=== PATIENT | female | born 1975 | race Caucasian/White ===

== ENCOUNTER → 2017-04-26 | Outpatient (CLI) | payer OTHER ==
--- NOTE | 2017-04-26 11:56 | REPMRS ---
Patient History The patient states she had a clinical breast exam in April 2017.Patient is nulliparous. Family history of breast cancer in maternal aunt at age 70 and colorectal cancer in maternal grandmother. Taking hormonal contraceptives for 1 month. Digital Mammo Screening Bilat: April 26, 2017 - Exam #: [id number] Bilateral CC and MLO view(s) were taken. Technologist: Linda Rangel, Technologist Prior study comparison: April 24, 2016, bilateral digital mammo screening bilat performed at [facility]. February 14, 2013, bilateral digital mammo screening bilat performed at [facility]. FINDINGS: There are scattered fibroglandular densities. There has been no change in the appearance of the mammogram from the prior studies. There is a mild amount of residual fibroglandular tissue which is fairly symmetric. There is no interval development of dominant mass, architectural distortion, or clustered microcalcification suggestive of malignancy. ASSESSMENT: BI-RADS/ACR category 1 mammogram. Negative. Recommendation Routine screening mammogram in 1 year (for women over age 40). This mammogram was interpreted with the aid of an FDA-approved computer-aided dectection system. Electronically Signed By: Joel Dick MD 04/26/17 1454
== END ==
LOC: M RAD 11:20
PROVIDERS: ATTEND Obstetrics & Gynecology
DX: Z12.31 Encounter for screening mammogram for malignant neoplasm of breast (principal)

== ENCOUNTER 2017-06-25 07:05 | Day surgery (SDC) | payer OTHER ==
[~2017-06-25] VITALS: Ht 157.5 cm; Wt 99.3 kg
[~2017-06-25 07:05] MED LIST: VALT500T PO
[2017-06-25] MEDS ORDERED: LR 1,000 ML IV ONE (07:15)
[2017-06-25] MEDS ORDERED: LIDOCAINE 1% MDV 20ML VIAL SQ PRN (07:15)
[2017-06-25 07:45] LABS: MEAN CORPUSCULAR HEMOGLOBIN 29.2 pg (27.0-33.0); MEAN CORPUSCULAR HGB CONC 32.4 g/dl (32.0-36.5); MEAN CORPUSCULAR VOLUME 90.1 fl (80.0-96.0); PLATELET COUNT, AUTOMATED 333 10^3/uL (150-450); RED CELL DISTRIBUTION WIDTH 13.1 % (11.5-14.5); WHITE BLOOD COUNT 7.2 10^3/uL (4.0-10.0)
[2017-06-25 07:46] LABS: CONTROL LINE HCG INT CTR LINE PRESENT
[2017-06-25] MEDS ORDERED: ACETAMINOPHEN 650 MG SUPP As Ordered ONE (08:15)
[2017-06-25] MEDS ORDERED: MIDAZOLAM INJ 2 MG/2 ML VIAL (J2250) As Ordered ONE (08:26)
[2017-06-25] MEDS ORDERED: fentaNYL 100 MCG/2 ML INJECTION (J3010) As Ordered ONE (08:26)
[2017-06-25] MEDS ORDERED: LIDOCAINE 2% INJ 100 MG/5 ML SDV (FOR ANES.) As Ordered ONE (08:37)
[2017-06-25] MEDS ORDERED: PROPOFOL 200 MG/20 ML VIAL As Ordered ONE ×2 (08:37→08:42)
[2017-06-25] MEDS ORDERED: dexameTHASONE 4 MG/ML 1ML VIAL (J1100) As Ordered ONE (08:43)
[2017-06-25] MEDS ORDERED: KETOROLAC 60 MG/2 ML VIAL (J1885) As Ordered ONE (08:43)
[2017-06-25] MEDS ORDERED: ONDANSETRON 4MG/2ML VIAL (J2405) As Ordered ONE (08:43)
[2017-06-25] MEDS ORDERED: PERC5TAB12 PO (09:00)
[2017-06-25 10:00] VITALS: BP 134/84
--- NOTE | 2017-06-25 17:03 | RO ---
DATE OF PROCEDURE: 06/25/2017 Elvie is a 42-year-old female with an extensive history of abnormal uterine bleeding. After counseling in the office a decision was made for D and C hysteroscopy. The patient had an inconclusive endometrial biopsy done in the office at this point this is being done to rule out any further pathology. PREOPERATIVE DIAGNOSIS: Menometrorrhagia with an inconclusive endometrial biopsy cannot rule out cancer. POSTOPERATIVE DIAGNOSIS: 1. Menometrorrhagia with an inconclusive endometrial biopsy cannot rule out cancer. 2. Cervical thrush endometrial polyp and her fluffy endometrium. PROCEDURE: 1. D and C. 2. Hysteroscopy. 3. Polypectomy. ANESTHESIA: Light MAC COMPLICATIONS: None. ESTIMATED BLOOD LOSS: Less than 100 mL SPECIMENS SENT TO THE LAB: Endometrial curettings and endometrial polyp. PROCEDURE: After visiting with the patient in the holding area informed consent was reaffirmed. She was then taken to the operating room where anesthetic was found to be adequate. She was then draped and prepped usual sterile fashion in dorsal lithotomy position. At this point a straight catheter bladder was performed for approximately 200 mL of clear urine. We then placed a weighted speculum in the posterior fornix of the vagina using a Allison retractor, the anterior lip of the cervix was then grasped with a single-tooth tenaculum. The uterus was sound to approximately 8-9 cm in size. The cervix was then serially dilated. The hysteroscope was inserted upon visualizing the endometrial cavity and an endocervical fascia endometrial polyp was noted with very fluffy endometrium at this point the hysteroscope was removed. Using a polyp forceps the polyp was removed. A sharp curettage of the endometrial lining was done numerous fluffy endometrial tissue was obtained and those were sent to pathology for final diagnosis. Endometrium versus an adenocarcinoma cannot be ruled out. Awaiting final pathology. The patient did tolerated procedure well. She was then transferred to recovery room in stable condition.
== END 2017-06-25 10:20 | disposition home or self-care (01) ==
LOC: M SDC 07:05
PROVIDERS: ATTEND Obstetrics & Gynecology
DX: C54.1 Malignant neoplasm of endometrium (principal); N84.0 Polyp of corpus uteri; A60.9 Anogenital herpesviral infection, unspecified; Z79.899 Other long term (current) drug therapy
CPT/HCPCS: 36415; 58558; 84703; 85027; 86850; 86900; 86901; 88305; J1100; J1885; J2250; J2405; J3010

== ENCOUNTER → 2017-08-19 | Outpatient (CLI) | payer OTHER ==
[2017-08-19 09:12] LABS: BASO % 0.6 % (0.0-1.0); EOS # 0.1 10^3/uL (0.0-0.50); EOS % 1.5 % (0.0-3.0); HEMATOCRIT 38.8 % (36.0-47.0); HEMOGLOBIN 13.1 g/dl (12.0-16.0); IMMATURE GRANULOCYTE % 0.3 % (0-0); LYMPH # 1.6 10^3/uL (1.5-4.5); LYMPH % 24.6 % (24.0-44.0); MEAN CORPUSCULAR HEMOGLOBIN 30.5 pg (27.0-33.0); MEAN CORPUSCULAR HGB CONC 33.8 g/dl (32.0-36.5); MEAN CORPUSCULAR VOLUME 90.2 fl (80.0-96.0); MONO # 0.6 10^3/uL (0.0-0.8); MONO % 9.6 % (0.0-5.0); NEUTROPHILS # 4.2 10^3/uL (1.8-7.7); NEUTROPHILS % 63.4 % (36.0-66.0); PLATELET COUNT, AUTOMATED 287 10^3/uL (150-450); RED CELL DISTRIBUTION WIDTH 12.9 % (11.5-14.5); WHITE BLOOD COUNT 6.6 10^3/uL (4.0-10.0)
== END ==
LOC: M WUC 08:12
DX: C54.1 Malignant neoplasm of endometrium (principal)

== ENCOUNTER → 2018-04-28 | Outpatient (CLI) | payer OTHER | LOC: M RAD 12:25 | DX: Z12.31 Encounter for screening mammogram for malignant neoplasm of breast (principal) ==

== ENCOUNTER → 2019-05-11 | Outpatient (CLI) | payer OTHER ==
[~2019-05-11] MED LIST changes: +PERC5TAB12 PO
== END ==
LOC: M RAD 10:55
PROVIDERS: ATTEND Obstetrics & Gynecology
DX: Z12.31 Encounter for screening mammogram for malignant neoplasm of breast (principal)

== ENCOUNTER → 2019-05-30 | Outpatient (CLI) | payer OTHER ==
--- NOTE | 2019-05-30 15:57 | REP ---
BILATERAL MAMMOGRAM WITH 3D TOMOSYNTHESIS, LEFT BREAST ULTRASOUND: Family history of breast cancer at age 70 in maternal aunt. Kieran Garcia lifetime risk of breast cancer at 13.5%. Comparison mammogram 04/28/2018 as well as other prior exams. The patient complains of bilateral breast pain laterally more so on the left. However, she states that this may be due to increased physical exertion recently. There is mild scattered fibroglandular tissue bilaterally in a fairly symmetrical pattern. No mass, architectural distortion or clustered microcalcifications are seen bilaterally. Real-time sonographic evaluation of the outer half of the left breast is performed at the site of greatest breast pain. No solid mass is seen. There is a benign cyst at 3-o'clock position of the left breast approximately 7 cm from the nipple. There are minimally dilated left retroareolar ducts. IMPRESSION: ACR 2 benign. No mass or clustered microcalcifications bilaterally. By ultrasound in the outer half of the left breast in the region of greatest breast pain there is a benign appearing oval cyst 6 x 2 x 7 mm at the 3-o'clock position. No solid nodule is seen. The findings are benign. Recommend followup mammogram in one year. BIRADS 2: BI-RADS/ACR category 2 mammogram. Benign Findings. This mammogram was interpreted with the aid of an FDA-approved computer-aided detection system. The patient states she/he had a clinical breast exam in 05/2019. The patient letter being requested is M2. Electronically Signed by Joel Dick MD 05/31/2019 12:28 P
== END ==
LOC: M RAD 12:17
PROVIDERS: ATTEND Obstetrics & Gynecology
DX: N60.02 Solitary cyst of left breast (principal); N64.4 Mastodynia; Z80.3 Family history of malignant neoplasm of breast
CPT/HCPCS: 76642; 77066; G0279

== ENCOUNTER → 2020-05-17 | Outpatient (CLI) | payer OTHER ==
--- NOTE | 2020-05-17 14:42 | REPMRS ---
Patient History The patient states she had a clinical breast exam in April 2020.Family history of colorectal cancer in maternal grandmother, breast cancer at age 70 in maternal aunt. Taking hormonal contraceptives for 1 month. 3D TOMOSYNTHESIS WAS PERFORMED. The Kieran Malone lifetime risk for breast cancer is 13.3%. VOLPARA DENSITY A. Digital Woman Screen Mammo: May 17, 2020 - Exam #: [id number] Bilateral CC and MLO view(s) were taken. Technologist: Hue Ragsdale, Technologist Prior study comparison: May 30, 2019, digital mammo diagnostic bilateral, performed at [facility]. April 28, 2018, bilateral digital mammo screening bilat, performed at [facility]. FINDINGS: There are scattered fibroglandular densities. There has been no change in the appearance of the mammogram from the prior studies. There is a mild amount of residual fibroglandular tissue which is fairly symmetric. There is no interval development of dominant mass, architectural distortion, or clustered microcalcification suggestive of malignancy. Assessment: BI-RADS/ACR category 1 mammogram. Negative Mammogram. Recommendation Routine screening mammogram in 1 year (for women over age 40). This mammogram was interpreted with the aid of an FDA-approved computer-aided dectection system. Electronically Signed By: Joel Dick MD 05/17/20 1045
== END ==
LOC: M WHC 12:54
PROVIDERS: ATTEND Obstetrics & Gynecology
DX: Z12.31 Encounter for screening mammogram for malignant neoplasm of breast (principal); Z80.0 Family history of malignant neoplasm of digestive organs; Z80.3 Family history of malignant neoplasm of breast

== ENCOUNTER → 2020-05-21 | Outpatient (REF) | payer OTHER | LOC: M LAB REF 12:33 | PROVIDERS: ATTEND Nurse Practitioner Adult Health | DX: Z00.01 Encounter for general adult medical examination with abnormal findings (principal); I10 Essential (primary) hypertension; E66.01 Morbid (severe) obesity due to excess calories ==

== ENCOUNTER → 2020-11-06 | Outpatient (REF) | payer OTHER | LOC: M LAB REF 12:05 | PROVIDERS: ATTEND Nurse Practitioner Adult Health | DX: L68.0 Hirsutism (principal) ==

== ENCOUNTER → 2021-09-12 | Outpatient (CLI) | payer OTHER | LOC: M WHC 14:15 | PROVIDERS: ATTEND Nurse Practitioner Adult Health | DX: Z12.31 Encounter for screening mammogram for malignant neoplasm of breast (principal); Z78.0 Asymptomatic menopausal state ==

== ENCOUNTER → 2022-08-28 | Outpatient (REF) | payer OTHER | LOC: M LAB REF 16:18 | PROVIDERS: ATTEND Nurse Practitioner Adult Health | DX: E83.52 Hypercalcemia (principal) ==

== ENCOUNTER → 2022-09-21 | Outpatient (CLI) | payer OTHER, SELFPAY | LOC: M WHC 10:47 | PROVIDERS: ATTEND Nurse Practitioner Adult Health | DX: Z12.31 Encounter for screening mammogram for malignant neoplasm of breast (principal) ==

== ENCOUNTER → 2023-10-18 | Outpatient (CLI) | payer OTHER | LOC: M WHC 07:32 | PROVIDERS: ATTEND Internal Medicine | DX: Z12.31 Encounter for screening mammogram for malignant neoplasm of breast (principal) ==

== ENCOUNTER → 2024-11-06 | Outpatient (CLI) | payer OTHER | LOC: M WHC 08:32 | PROVIDERS: ATTEND Internal Medicine | DX: Z12.31 Encounter for screening mammogram for malignant neoplasm of breast (principal); R92.323 Mammographic fibroglandular density, bilateral breasts ==